=== PATIENT | male | born 1955 | race Caucasian/White ===

== ENCOUNTER 2019-11-27 16:07 | Inpatient (IN) ==
[2019-11-27] MEDS: Ipratropium 1 PUFF INHALER IH SCH ×2 (21:53→23:28)
[2019-11-27 22:14] LABS: ABG Base Excess 0 mEq/L (-2 to 3); ABG HCO3 25 mEq/L (21-27); ABG Oxygen Saturation 98 % (95-98); ABG PCO2 41 mmHg (35-45); ABG PH 7.39 pH Units (7.32-7.45); ABG PO2 99 mmHg (85-104); ABG TCO2 26 mEq/L (20-26); Blood Gas Modality 2LPM
[2019-11-28] MEDS: MethylPREDNISolone 40 MG/ML VIAL IVP SCH ×4 (00:24→16:14)
[2019-11-28 02:46] LABS: Basophils % 0.2 %; Hematocrit 37.6 % (37.5-50.1); Hemoglobin 12.5 g/dL (12.9-16.9); Immature Granulocytes % 0.5 % (0-4); Lymphocytes % 8.8 %; Mean Corpuscular HGB Conc 33.2 g/dL (31.6-35.5); Mean Corpuscular Hemoglobin 31.6 pg (28.0-33.3); Mean Corpuscular Volume 94.9 fL (83.0-100.0); Mean Platelet Volume 11.5 fL (9.4-12.4); Monocytes % 1.2 %; Platelet Count 230 K/mcL (140-400); Red Blood Count 3.96 M/mcL (4.19-5.50); Segmented Neutrophils % 89.3 %; White Blood Count 4.2 K/mcL (4.3-11.1)
[2019-11-28 02:47] LABS: Lymphocytes # 0.4 K/mcL (0.6-4.6); Monocytes # 0.1 K/mcL (0.0-1.3); Neutrophils # 3.8 K/mcL (1.6-8.9)
[2019-11-28 03:08] LABS: Alanine Aminotransferase 8 Units/L (7-52); Albumin/Globulin Ratio 1.5 (1.1-2.2); Alkaline Phosphatase 104 Units/L (34-104); Aspartate Amino Transferase 11 Units/L (13-39); BUN/Creatinine Ratio 23 (6-26); Bilirubin,Total 0.4 mg/dL (0.3-1.0); Blood Urea Nitrogen 14 mg/dL (8-23); Calcium 8.9 mg/dL (8.6-10.3); Carbon Dioxide 23 mEq/L (23-29); Chloride 105 mEq/L (98-107); Globulin 2.7 g/dL (2.4-3.5); Glucose 155 mg/dL (70-105); Osmolality,Calculated 290 (280-300); Potassium 3.8 mEq/L (3.5-5.1); Sodium 138 mEq/L (136-145); Total Protein 6.7 g/dL (6.4-8.9); eGFR For African Americans > 60 (> 60); eGFR For Non-African Americans > 60 (> 60)
[2019-11-28] MEDS: Ipratropium 1 PUFF INHALER IH SCH ×6 (05:22→23:25)
[2019-11-28] MEDS ORDERED: *HR* Heparin 5,000 UNIT/ML VIAL SQ SCH (06:00)
[2019-11-28] MEDS: lisinopriL 10 MG TABLET PO SCH (07:43)
[2019-11-28] MEDS: hydroCHLOROthiazide 25 MG TABLET PO SCH (07:43)
[2019-11-28] MEDS: Carbidopa/Levodopa ER 50/200 TABLET PO SCH ×4 (07:44→19:56)
[2019-11-28] MEDS ORDERED: Azithromycin 500 MG in 0.9 % Sodium Chloride 250 ML IVPB SCH ×2 (09:00→14:00)
[2019-11-28] MEDS: *HR* Enoxaparin 40 MG/0.4 ML SYRINGE SQ SCH (09:01)
[2019-11-28] MEDS: Loratadine 10 MG TABLET PO SCH (14:06)
[2019-11-29] MEDS: Carbidopa/Levodopa ER 50/200 TABLET PO SCH ×6 (01:10→23:32)
[2019-11-29] MEDS: MethylPREDNISolone 40 MG/ML VIAL IVP SCH ×5 (01:10→23:33)
[2019-11-29 03:13] LABS: Basophils % 0.1 %; Hematocrit 36.4 % (37.5-50.1); Hemoglobin 12.1 g/dL (12.9-16.9); Immature Granulocytes % 0.7 % (0-4); Lymphocytes # 0.7 K/mcL (0.6-4.6); Lymphocytes % 7.3 %; Mean Corpuscular HGB Conc 33.2 g/dL (31.6-35.5); Mean Corpuscular Hemoglobin 31.4 pg (28.0-33.3); Mean Corpuscular Volume 94.5 fL (83.0-100.0); Mean Platelet Volume 12.3 fL (9.4-12.4); Monocytes # 0.5 K/mcL (0.0-1.3); Monocytes % 4.9 %; Neutrophils # 7.9 K/mcL (1.6-8.9); Platelet Count 246 K/mcL (140-400); Red Blood Count 3.85 M/mcL (4.19-5.50); Red Cell Distribution Width 13.2 % (11.5-14.5); White Blood Count 9.1 K/mcL (4.3-11.1)
[2019-11-29 03:16] LABS: BUN/Creatinine Ratio 35 (6-26); Blood Urea Nitrogen 33 mg/dL (8-23); Carbon Dioxide 25 mEq/L (23-29); Chloride 103 mEq/L (98-107); Glucose 129 mg/dL (70-105); Osmolality,Calculated 291 (280-300); Potassium 4.4 mEq/L (3.5-5.1); Sodium 136 mEq/L (136-145); eGFR For African Americans > 60 (> 60); eGFR For Non-African Americans > 60 (> 60)
[2019-11-29] MEDS: Ipratropium 1 PUFF INHALER IH SCH ×5 (03:16→19:42)
[2019-11-29] MEDS: *HR* Enoxaparin 40 MG/0.4 ML SYRINGE SQ SCH (05:45)
[2019-11-29] MEDS: hydroCHLOROthiazide 25 MG TABLET PO SCH (07:29)
[2019-11-29] MEDS: Azithromycin 250 MG TABLET PO SCH (07:29)
[2019-11-29] MEDS: lisinopriL 10 MG TABLET PO SCH (07:29)
[2019-11-29] MEDS: Loratadine 10 MG TABLET PO SCH (07:29)
[2019-11-30] MEDS: Ipratropium 1 PUFF INHALER IH SCH ×7 (00:27→23:54)
[2019-11-30] MEDS: *HR* Enoxaparin 40 MG/0.4 ML SYRINGE SQ SCH (05:11)
[2019-11-30] MEDS: MethylPREDNISolone 40 MG/ML VIAL IVP SCH ×3 (09:13→20:21)
[2019-11-30] MEDS: lisinopriL 10 MG TABLET PO SCH (09:13)
[2019-11-30] MEDS: Carbidopa/Levodopa ER 50/200 TABLET PO SCH ×4 (09:13→20:01)
[2019-11-30] MEDS: Loratadine 10 MG TABLET PO SCH (09:13)
[2019-11-30] MEDS: Azithromycin 250 MG TABLET PO SCH (09:13)
[2019-12-01] MEDS: Ipratropium 1 PUFF INHALER IH SCH ×2 (04:23→07:14)
[2019-12-01] MEDS: *HR* Enoxaparin 40 MG/0.4 ML SYRINGE SQ SCH (05:01)
[2019-12-01 05:29] LABS: Basophils % 0.1 %; Hemoglobin 13.1 g/dL (12.9-16.9); Immature Granulocytes % 0.6 % (0-4); Lymphocytes # 0.5 K/mcL (0.6-4.6); Lymphocytes % 5.9 %; Mean Corpuscular HGB Conc 32.8 g/dL (31.6-35.5); Mean Corpuscular Hemoglobin 31.2 pg (28.0-33.3); Mean Corpuscular Volume 95.2 fL (83.0-100.0); Monocytes # 0.5 K/mcL (0.0-1.3); Monocytes % 5.7 %; Neutrophils # 7.5 K/mcL (1.6-8.9); Platelet Count 242 K/mcL (140-400); Red Cell Distribution Width 12.8 % (11.5-14.5); Segmented Neutrophils % 87.7 %; White Blood Count 8.6 K/mcL (4.3-11.1)
[2019-12-01 05:45] LABS: BUN/Creatinine Ratio 39 (6-26); Blood Urea Nitrogen 33 mg/dL (8-23); Calcium 8.7 mg/dL (8.6-10.3); Carbon Dioxide 27 mEq/L (23-29); Chloride 103 mEq/L (98-107); Glucose 120 mg/dL (70-105); Magnesium 2.4 mg/dL (1.6-2.6); Osmolality,Calculated 294 (280-300); Phosphorous 4.4 mg/dL (2.7-4.5); Potassium 3.9 mEq/L (3.5-5.1); Sodium 138 mEq/L (136-145); eGFR For African Americans > 60 (> 60); eGFR For Non-African Americans > 60 (> 60)
[2019-12-01 07:44] VITALS: BP 173/85
[2019-12-01] MEDS: lisinopriL 10 MG TABLET PO SCH (08:22)
[2019-12-01] MEDS: Loratadine 10 MG TABLET PO SCH (08:22)
[2019-12-01] MEDS: Carbidopa/Levodopa ER 50/200 TABLET PO SCH ×2 (08:22)
[2019-12-01] MEDS: Azithromycin 250 MG TABLET PO SCH (08:22)
[2019-12-01] MEDS ORDERED: predniSONE 20 MG TABLET PO SCH (09:00)
== END 2019-12-01 10:57 | disposition home or self-care (01) | DRG 140 ==
LOC: 2NENU → SUATTDRO 17:35 → 3BNU 11-29 17:39
PROVIDERS: ADMIT Internal Medicine; ATTEND Family Medicine